=== PATIENT | male | born 1940 | race Hispanic/Latino ===

== ENCOUNTER 2018-12-21 20:43 | Emergency (ER) | payer OTHER ==
[2018-12-21] MEDS ORDERED: DiphenhydrAMINE HCL 50 MG/ML VIAL ONE (20:55)
[2018-12-21] MEDS ORDERED: FAMOTIDINE/PF 20 MG/2 ML VIAL IV ONE (20:55)
[2018-12-21] MEDS ORDERED: METHYLPREDNISOLONE SOD SUCC 125MG/2ML VIAL ONE (20:55)
[2018-12-21 21:21] LABS: BASOPHILS % (AUTO) 0.9 % (0.0-5.0); EOSINOPHILS % (AUTO) 1.9 % (0.0-8.0); HEMATOCRIT 39.7 % (42-54); LYMPHOCYTES % (AUTO) 31.4 % (21.0-51.0); MEAN CORPUSCULAR HEMOGLOBIN 33.8 pg (27.0-33.0); MEAN CORPUSCULAR HGB CONC 33.6 g/dL (32.0-36.0); MEAN CORPUSCULAR VOLUME 100.5 fL (79-99); MONOCYTES % (AUTO) 8.1 % (3.0-13.0); NEUTROPHILS % (AUTO) 57.7 % (40.0-77.0); PLATELET COUNT (AUTO) 348 K/uL (130-400); RED BLOOD CELL COUNT(AUTO) 3.95 MIL/uL (4.50-6.20); RED CELL DISTRIBUTION WIDTH 13.8 % (11.0-15.5); WHITE BLOOD COUNT (AUTO) 6.8 K/uL (4.8-10.8)
[2018-12-21 21:27] LABS: INR 0.93 (0.85-1.15); PARTIAL THROMBOPLASTIN TIME 23.5 SEC (26.3-35.5); PROTHROMBIN TIME 9.8 SEC (9.6-11.6)
[2018-12-21 21:34] LABS: AMYLASE 118 U/L (25-115); LIPASE 377 U/L (114-286)
[2018-12-21 21:37] LABS: ALBUMIN 3.4 g/dL (3.5-5.0); BILIRUBIN,TOTAL 0.2 mg/dL (0.2-1.0); CREATININE 0.5 mg/dL (0.5-1.5); TOTAL PROTEIN, SERUM 6.7 g/dL (6.0-8.3)
[2018-12-21 21:39] LABS: POTASSIUM 2.9 mmol/L (3.5-5.1)
[2018-12-21 21:46] LABS: B-TYPE NATRIURETIC PEPTIDE 24 pg/mL (0-100)
== END 2018-12-22 | disposition home or self-care (01) ==
LOC: EDH 20:43
DX: T63.441A Toxic effect of venom of bees, accidental (unintentional), initial encounter (principal); L50.0 Allergic urticaria; E78.5 Hyperlipidemia, unspecified; Z91.030 Bee allergy status; Y92.89 Other specified places as the place of occurrence of the external cause
CPT/HCPCS: 36415; 71045; 80053; 82150; 82550; 83690; 83880; 85025; 85610; 85730; 93005; 96374; 96375; 99285; A4218; J1200; J2930; J3490

== ENCOUNTER 2020-11-26 09:12 | Inpatient (IN) | payer OTHER ==
[~2020-11-26] VITALS: Ht 175.3 cm; Wt 77.1 kg
[2020-11-26] MEDS ORDERED: ONDANSETRON HCL 4 MG/2 ML VIAL ONE ×2 (09:38→16:35)
[2020-11-26] MEDS ORDERED: SODIUM CHLORIDE 0.9% 1000ML 1,000 ML IV ONE ×2 (09:38→13:32)
[2020-11-26] MEDS ORDERED: MORPHINE SULFATE 4 MG/1ML SYG ONE (09:39)
[2020-11-26 09:42] LABS: APPEARANCE,URINE Turbid (CLEAR); BILIRUBIN,URINE Negative (NEGATIVE); COLOR,URINE Dark Yellow (YELLOW); GLUCOSE, URINE (UA) Negative (NEGATIVE); KETONES,URINE Trace mg/dL (NEGATIVE); LEUKOCYTE ESTERASE ,URINE Small (NEGATIVE); NITRATE,URINE Negative (NEGATIVE); OCCULT BLOOD,URINE Negative (NEGATIVE); PROTEIN,URINE POS 1+ mg/dL (NEGATIVE)
[2020-11-26 09:50] LABS: BASOPHILS % (AUTO) 0.2 % (0.0-5.0); EOSINOPHILS % (AUTO) 0.9 % (0.0-8.0); HEMATOCRIT 43.3 % (42-54); LYMPHOCYTES % (AUTO) 6.3 % (21.0-51.0); MEAN CORPUSCULAR HEMOGLOBIN 29.6 pg (27.0-33.0); MEAN CORPUSCULAR HGB CONC 32.8 g/dL (32.0-36.0); MEAN CORPUSCULAR VOLUME 90.2 fL (79-99); MONOCYTES % (AUTO) 5.4 % (3.0-13.0); NEUTROPHILS % (AUTO) 86.7 % (40.0-77.0); PLATELET COUNT (AUTO) 376 K/uL (130-400); RED CELL DISTRIBUTION WIDTH 13.6 % (11.0-15.5); WHITE BLOOD COUNT (AUTO) 17.3 K/uL (4.8-10.8)
[2020-11-26 09:57] LABS: BACTERIA,URINE Few /HPF (None Seen); RBC,URINE 0-1 /HPF (0-1)
[2020-11-26 09:58] LABS: MUCUS,URINE Few LPF (None Seen); SQUAMOUS EPITHELIAL CELL,UR 0-2 /HPF (0-2)
[2020-11-26 10:08] LABS: BILIRUBIN,TOTAL 0.6 mg/dL (0.2-1.0)
[2020-11-26] MEDS ORDERED: SODIUM POLYSTYRENE SULFONATE 15 GM/60 ML ML ONE (10:23)
[2020-11-26 10:26] LABS: CREATININE 1.4 mg/dL (0.5-1.5); POTASSIUM 4.7 mmol/L (3.5-5.1); TOTAL PROTEIN, SERUM 8.1 g/dL (6.0-8.3)
[2020-11-26] MEDS ORDERED: IOHEXOL-350 75 ML VIAL IV ONE (11:07)
[2020-11-26] MEDS ORDERED: ONDANSETRON HCL 4 MG/2 ML VIAL IVP PRN (13:15)
[2020-11-26] MEDS ORDERED: POTASSIUM CHLORIDE 20MEQ/100ML 100 ML IV PRN ×2 (13:15)
[2020-11-26] MEDS ORDERED: POTASSIUM CHLORIDE 10% ELIXIR 20 MEQ/15 ML UDCUP PO PRN (13:15)
[2020-11-26] MEDS ORDERED: LIDOCAINE HCL-MPF 1% 2ML VIAL IV PRN ×2 (13:15)
[2020-11-26] MEDS ORDERED: MAGNESIUM 2GM PREMIX 50ML 50 ML IV PRN (13:15)
[2020-11-26] MEDS ORDERED: SODIUM CHLORIDE 0.9% 50 ML IV ONE (13:32)
[2020-11-26] MEDS ORDERED: CEFTRIAXONE SODIUM 1 GM ONE (13:32)
[2020-11-26] MEDS: CEFTRIAXONE SODIUM 1 GM IV SCH (14:00)
[2020-11-26] MEDS ORDERED: MORPHINE SULFATE 2 MG/ML 1ML SYG ONE (16:35)
[2020-11-26] MEDS ORDERED: HYDROMORPHONE 1 MG/1 ML AMP ONE (18:30)
[2020-11-26] MEDS: FAMOTIDINE/PF 20 MG/2 ML VIAL IV SCH (21:00)
[2020-11-26] MEDS: SODIUM CHLORIDE 0.9% 1000ML 1,000 ML IV SCH (23:15)
[2020-11-27] VITALS (28 sets, daily range): BP systolic 107–175; BP diastolic 43–84
[2020-11-27] MEDS ORDERED: MORPHINE SULFATE 4 MG/1ML SYG ONE (00:30)
[2020-11-27] MEDS ORDERED: SODIUM CHLORIDE 0.9% 1000ML 1,000 ML IV ONE (02:02)
[2020-11-27] MEDS: MORPHINE SULFATE 2 MG/ML 1ML SYG IVP PRN ×3 (05:47→20:28)
[2020-11-27 05:55] LABS: HEMATOCRIT 42.2 % (42-54); MEAN CORPUSCULAR HEMOGLOBIN 29.3 pg (27.0-33.0); MEAN CORPUSCULAR HGB CONC 32.5 g/dL (32.0-36.0); MEAN CORPUSCULAR VOLUME 90.4 fL (79-99); RED BLOOD CELL COUNT(AUTO) 4.67 MIL/uL (4.50-6.20); RED CELL DISTRIBUTION WIDTH 13.9 % (11.0-15.5)
[2020-11-27 06:08] LABS: CREATININE 1.1 mg/dL (0.5-1.5); POTASSIUM 4.3 mmol/L (3.5-5.1)
[2020-11-27] MEDS: SODIUM CHLORIDE 0.9% 1000ML 1,000 ML IV SCH (10:39)
[2020-11-27] MEDS ORDERED: BUPIVACAINE/PF 0.25% 30ML VIAL IJ ONE ×2 (12:13→12:32)
[2020-11-27] MEDS ORDERED: LIDOCAINE 1%-EPI 1:100,000 20 ML VIAL IJ ONE (12:13)
[2020-11-27] MEDS ORDERED: LIDOCAINE PF 2% 5ML ABBOJECT ONE (12:19)
[2020-11-27] MEDS ORDERED: ROCURONIUM 10MG/1ML SYR 10 MG/ML ML ONE (12:19)
[2020-11-27] MEDS ORDERED: PROPOFOL 10 MG/ML 20ML VIAL IV ONE (12:19)
[2020-11-27] MEDS ORDERED: SUCCINYLCHOLINE 200MG/10ML SYR ONE (12:19)
[2020-11-27] MEDS ORDERED: DEXAMETHASONE SOD PHOSPHATE 10MG/ML 1ML VIAL ONE (12:25)
[2020-11-27] MEDS ORDERED: ONDANSETRON HCL 4 MG/2 ML VIAL ONE (12:26)
[2020-11-27] MEDS ORDERED: GLYCOPYRROLATE 1 MG/5 ML SYRINGE ONE (12:26)
[2020-11-27] MEDS ORDERED: FENTANYL CITRATE PF 50 MCG/1 ML 2ML VIAL ONE (12:49)
[2020-11-27] MEDS ORDERED: CEFAZOLIN SODIUM 1 GM VIAL ONE (13:01)
[2020-11-27] MEDS ORDERED: CEFTRIAXONE SODIUM 1 GM ONE (13:15)
[2020-11-27] MEDS: CEFTRIAXONE SODIUM 1 GM IV SCH (13:50)
[2020-11-27] MEDS ORDERED: MEPERIDINE-PF 25 MG/ML SYG ONE ×2 (14:07→14:31)
[2020-11-27] MEDS: FAMOTIDINE/PF 20 MG/2 ML VIAL IV SCH (20:27)
[2020-11-28] MEDS ORDERED: TAMSULOSIN HCL 0.4 MG CAP.ER.24H ONE (00:15)
[2020-11-28] MEDS: TAMSULOSIN HCL 0.4 MG CAP.ER.24H PO SCH ×3 (00:15→20:48)
[2020-11-28 03:44] VITALS: BP 149/70
[2020-11-28] MEDS ORDERED: SERT-439 PO (04:25)
[2020-11-28] MEDS ORDERED: DOXA4TAB3 PO (04:25)
[2020-11-28] MEDS ORDERED: CHOL100040 PO (04:25)
[2020-11-28 05:07] LABS: HEMATOCRIT 38.6 % (42-54); MEAN CORPUSCULAR HEMOGLOBIN 30.2 pg (27.0-33.0); MEAN CORPUSCULAR HGB CONC 33.2 g/dL (32.0-36.0); RED BLOOD CELL COUNT(AUTO) 4.24 MIL/uL (4.50-6.20); RED CELL DISTRIBUTION WIDTH 13.9 % (11.0-15.5); WHITE BLOOD COUNT (AUTO) 13.7 K/uL (4.8-10.8)
[2020-11-28 05:09] LABS: CREATININE 0.9 mg/dL (0.5-1.5)
[2020-11-28] MEDS: DOXAZOSIN MESYLATE 2 MG TABLET PO SCH (09:00)
[2020-11-28] MEDS: SERTRALINE HCL 50 MG TABLET PO SCH (09:00)
[2020-11-28 09:57] VITALS: BP 155/69
[2020-11-28] MEDS: SODIUM CHLORIDE 0.9% 1000ML 1,000 ML IV SCH ×2 (10:37→21:34)
[2020-11-28 12:12] VITALS: BP 145/67
[2020-11-28 16:52] VITALS: BP 153/72
[2020-11-28] MEDS: CEFTRIAXONE SODIUM 1 GM IV SCH (17:54)
[2020-11-28 19:00] VITALS: BP 153/78
[2020-11-28] MEDS: FAMOTIDINE/PF 20 MG/2 ML VIAL IV SCH (21:34)
[2020-11-28 23:59] VITALS: BP 160/86
[2020-11-29] MEDS: SODIUM CHLORIDE 0.9% 1000ML 1,000 ML IV SCH ×3 (00:35→20:23)
[2020-11-29 03:45] VITALS: BP 149/78
[2020-11-29 05:07] LABS: HEMATOCRIT 35.8 % (42-54); MEAN CORPUSCULAR HEMOGLOBIN 29.6 pg (27.0-33.0); MEAN CORPUSCULAR VOLUME 89.9 fL (79-99); RED BLOOD CELL COUNT(AUTO) 3.98 MIL/uL (4.50-6.20); RED CELL DISTRIBUTION WIDTH 13.6 % (11.0-15.5); WHITE BLOOD COUNT (AUTO) 10.2 K/uL (4.8-10.8)
[2020-11-29 05:21] LABS: CREATININE 0.9 mg/dL (0.5-1.5); POTASSIUM 3.5 mmol/L (3.5-5.1)
[2020-11-29] MEDS: MORPHINE SULFATE 2 MG/ML 1ML SYG IVP PRN (06:07)
[2020-11-29 07:54] VITALS: BP 141/65
[2020-11-29] MEDS: SERTRALINE HCL 50 MG TABLET PO SCH (09:00)
[2020-11-29] MEDS: TAMSULOSIN HCL 0.4 MG CAP.ER.24H PO SCH ×2 (09:00→20:24)
[2020-11-29] MEDS: DOXAZOSIN MESYLATE 2 MG TABLET PO SCH (09:00)
[2020-11-29 11:39] VITALS: BP 144/68
[2020-11-29] MEDS: CEFTRIAXONE SODIUM 1 GM IV SCH (14:42)
[2020-11-29 16:01] VITALS: BP 145/73
[2020-11-29 20:00] VITALS: BP 134/70
[2020-11-29] MEDS: FAMOTIDINE/PF 20 MG/2 ML VIAL IV SCH (20:23)
[2020-11-30 00:01] VITALS: BP 148/88
[2020-11-30 04:00] VITALS: BP 158/84
[2020-11-30 05:24] LABS: HEMATOCRIT 34.1 % (42-54); MEAN CORPUSCULAR HEMOGLOBIN 29.8 pg (27.0-33.0); MEAN CORPUSCULAR HGB CONC 33.1 g/dL (32.0-36.0); RED BLOOD CELL COUNT(AUTO) 3.79 MIL/uL (4.50-6.20); RED CELL DISTRIBUTION WIDTH 13.2 % (11.0-15.5); WHITE BLOOD COUNT (AUTO) 8.6 K/uL (4.8-10.8)
[2020-11-30 05:32] LABS: CREATININE 0.8 mg/dL (0.5-1.5); MAGNESIUM 1.9 mg/dL (1.80-2.40); POTASSIUM 3.3 mmol/L (3.5-5.1)
[2020-11-30] MEDS: SODIUM CHLORIDE 0.9% 1000ML 1,000 ML IV SCH (07:15)
[2020-11-30 07:56] VITALS: BP 147/73
[2020-11-30] MEDS: DOXAZOSIN MESYLATE 2 MG TABLET PO SCH (09:49)
[2020-11-30] MEDS: SERTRALINE HCL 50 MG TABLET PO SCH (09:50)
[2020-11-30] MEDS: TAMSULOSIN HCL 0.4 MG CAP.ER.24H PO SCH (09:50)
[2020-11-30 11:16] VITALS: BP 135/57
[2020-11-30] MEDS: MORPHINE SULFATE 2 MG/ML 1ML SYG IVP PRN (14:14)
[2020-11-30] MEDS: CEFTRIAXONE SODIUM 1 GM IV SCH (14:15)
[2020-11-30 16:26] VITALS: BP 140/72
[2020-11-30 20:00] VITALS: BP 143/73
[2020-11-30] MEDS: FAMOTIDINE/PF 20 MG/2 ML VIAL IV SCH (21:15)
[2020-12-01] VITALS (8 sets, daily range): BP systolic 94–165; BP diastolic 52–78
[2020-12-01] MEDS: TAMSULOSIN HCL 0.4 MG CAP.ER.24H PO SCH ×2 (00:15→09:43)
[2020-12-01 05:36] LABS: HEMATOCRIT 34.2 % (42-54); MEAN CORPUSCULAR HEMOGLOBIN 29.3 pg (27.0-33.0); MEAN CORPUSCULAR HGB CONC 33.6 g/dL (32.0-36.0); MEAN CORPUSCULAR VOLUME 87.2 fL (79-99); RED BLOOD CELL COUNT(AUTO) 3.92 MIL/uL (4.50-6.20); RED CELL DISTRIBUTION WIDTH 13.2 % (11.0-15.5); WHITE BLOOD COUNT (AUTO) 8.3 K/uL (4.8-10.8)
[2020-12-01 05:59] LABS: CREATININE 0.7 mg/dL (0.5-1.5); MAGNESIUM 1.9 mg/dL (1.80-2.40); POTASSIUM 3.1 mmol/L (3.5-5.1)
[2020-12-01] MEDS: POTASSIUM CHLORIDE 20 MEQ ERTAB PO PRN ×3 (07:13→21:15)
[2020-12-01] MEDS: ACETAMINOPHEN-CODEINE 300/30MG TAB PO PRN (09:42)
[2020-12-01] MEDS: DOXAZOSIN MESYLATE 2 MG TABLET PO SCH (09:42)
[2020-12-01] MEDS: SERTRALINE HCL 50 MG TABLET PO SCH (09:43)
[2020-12-01] MEDS: CEFTRIAXONE SODIUM 1 GM IV SCH (18:29)
[2020-12-01] MEDS: FAMOTIDINE/PF 20 MG/2 ML VIAL IV SCH (21:12)
[2020-12-02] MEDS: TAMSULOSIN HCL 0.4 MG CAP.ER.24H PO SCH ×2 (00:15→08:49)
[2020-12-02 03:30] VITALS: BP 139/66
[2020-12-02 05:26] LABS: CREATININE 0.7 mg/dL (0.5-1.5); POTASSIUM 3.7 mmol/L (3.5-5.1)
[2020-12-02 08:00] VITALS: BP 103/51
[2020-12-02] MEDS: DOXAZOSIN MESYLATE 2 MG TABLET PO SCH (08:49)
[2020-12-02] MEDS: SERTRALINE HCL 50 MG TABLET PO SCH (08:49)
[2020-12-02] MEDS: ACETAMINOPHEN-CODEINE 300/30MG TAB PO PRN (10:51)
[2020-12-02 11:58] VITALS: BP 116/55
[2020-12-03] MEDS ORDERED: PANTOPRAZOLE SODIUM 40 MG TABLET.DR PO SCH (09:00)
== END 2020-12-02 14:30 | disposition home or self-care (01) | DRG 330 ==
LOC: EDH 09:12 → EDHIP 13:11 → OBSVTOIN 13:11 → 3AH 23:32
PROVIDERS: ADMIT Internal Medicine; ATTEND Internal Medicine
PROC: 0WQF0ZZ Repair Abdominal Wall, Open Approach (ICD-10-PCS; principal; 2020-11-30)
PROC: 0DB80ZZ Excision of Small Intestine, Open Approach (ICD-10-PCS; 2020-11-30)
DX: K42.0 Umbilical hernia with obstruction, without gangrene (principal); N39.0 Urinary tract infection, site not specified; K40.30 Unilateral inguinal hernia, with obstruction, without gangrene, not specified as recurrent; K55.9 Vascular disorder of intestine, unspecified; K80.20 Calculus of gallbladder without cholecystitis without obstruction; E78.5 Hyperlipidemia, unspecified; N40.0 Benign prostatic hyperplasia without lower urinary tract symptoms; M10.9 Gout, unspecified; E87.6 Hypokalemia
CPT/HCPCS: 36415; 71045; 74177; 80048; 80053; 81001; 82150; 83690; 83735; 84484; 85025; 85027; 87040; 87088; 93005; 97039; G0378; J0330; J0690; J0696; J1100; J1170; J2001; J2175; J2270; J2405; J2704; J3010; J3490; J7030; J7120; Q9967

== ENCOUNTER 2021-01-27 12:09 | Emergency (ER) | payer OTHER ==
[~2021-01-27] VITALS: Ht 177.8 cm; Wt 74.8 kg
[~2021-01-27 12:09] MED LIST: CHOL100040 PO; DOXA4TAB3 PO; SERT-439 PO
[2021-01-27 12:11] VITALS: BP 100/62
[2021-01-27 13:24] LABS: BASOPHILS % (AUTO) 0.5 % (0.0-5.0); EOSINOPHILS % (AUTO) 1.2 % (0.0-8.0); HEMATOCRIT 37.9 % (42-54); LYMPHOCYTES % (AUTO) 17.4 % (21.0-51.0); MEAN CORPUSCULAR HEMOGLOBIN 30.6 pg (27.0-33.0); MEAN CORPUSCULAR VOLUME 92.7 fL (79-99); MONOCYTES % (AUTO) 7.7 % (3.0-13.0); NEUTROPHILS % (AUTO) 72.9 % (40.0-77.0); PLATELET COUNT (AUTO) 331 K/uL (130-400); RED BLOOD CELL COUNT(AUTO) 4.09 MIL/uL (4.50-6.20); RED CELL DISTRIBUTION WIDTH 14.3 % (11.0-15.5); WHITE BLOOD COUNT (AUTO) 7.5 K/uL (4.8-10.8)
[2021-01-27 14:02] LABS: B-TYPE NATRIURETIC PEPTIDE 284 pg/mL (0-100)
[2021-01-27 14:04] LABS: CARBON DIOXIDE 30 mmol/L (21-32); CHLORIDE 104 mmol/L (101-111); GLOMERULAR FILTR. RATE CALC 76 mL/min (>60); GLUCOSE,RANDOM 103 mg/dL (70-105); POTASSIUM 4.5 mmol/L (3.5-5.1); SODIUM SERUM 143 mmol/L (136-145); UREA NITROGEN, BLOOD 18 mg/dL (7-18)
[2021-01-27 14:15] LABS: ALANINE AMINOTRANSFERASE 31 U/L (12-78); ALBUMIN 3.3 g/dL (3.5-5.0); ASPARTATE AMINOTRANSFERASE 19 U/L (10-37); BILIRUBIN,TOTAL 0.8 mg/dL (0.2-1.0); CREATINE KINASE, TOTAL 40 U/L (21-232); MYOGLOBIN 62 ng/mL (10-92); TOTAL PROTEIN, SERUM 7.2 g/dL (6.0-8.3); TROPONIN I < 0.04 ng/mL (0.00-0.06)
[2021-01-27 15:13] LABS: CRP QUANTITATIVE 158.2 mg/L (0.00-9.0)
[2021-01-27 15:16] LABS: APPEARANCE,URINE Clear (CLEAR); BILIRUBIN,URINE Negative (NEGATIVE); COLOR,URINE Dark Yellow (YELLOW); GLUCOSE, URINE (UA) Negative (NEGATIVE); KETONES,URINE Trace mg/dL (NEGATIVE); LEUKOCYTE ESTERASE ,URINE Small (NEGATIVE); NITRATE,URINE Negative (NEGATIVE); OCCULT BLOOD,URINE Negative (NEGATIVE); PH,URINE 5.5 (5.0-8.0); PROTEIN,URINE Negative (NEGATIVE)
[2021-01-27 15:35] LABS: RBC,URINE 0-1 /HPF (0-1)
[2021-01-27 15:36] LABS: BACTERIA,URINE Few /HPF (None Seen); MUCUS,URINE Few LPF (None Seen); SQUAMOUS EPITHELIAL CELL,UR Rare /HPF (0-2)
[2021-01-27] MEDS ORDERED: CEFTRIAXONE 1G VIAL IVP SCH (16:00)
[2021-01-27] MEDS ORDERED: CEFTRIAXONE 1G VIAL ONE (16:16)
[2021-01-27] MEDS ORDERED: CEPH500B PO (16:52)
[2021-01-27] MEDS ORDERED: PHEN-847 PO (16:52)
[2021-01-27 17:15] VITALS: BP 108/70
== END 2021-01-27 17:16 | disposition home or self-care (01) ==
LOC: EDH 12:29
DX: N39.0 Urinary tract infection, site not specified (principal); Z98.890 Other specified postprocedural states
CPT/HCPCS: 36415; 71045; 74176; 80053; 81001; 82550; 83690; 83874; 83880; 84484; 85025; 86140; 93005 ×2; 96374; 99285; J0696

== ENCOUNTER 2022-12-30 14:46 | Observation (INO) | payer OTHER ==
[~2022-12-30] VITALS: Ht 177.8 cm; Wt 82.0 kg
[~2022-12-30 14:46] MED LIST changes: +CEPH500B PO; +PHEN-847 PO
[2022-12-30 15:23] LABS: APPEARANCE,URINE CLEAR (CLEAR); BILIRUBIN,URINE NEGATIVE (NEGATIVE); COLOR,URINE YELLOW (YELLOW); GLUCOSE, URINE (UA) NEGATIVE (NEGATIVE); KETONES,URINE NEGATIVE (NEGATIVE); LEUKOCYTE ESTERASE ,URINE NEGATIVE Leu/uL (NEGATIVE); NITRATE,URINE NEGATIVE (NEGATIVE); OCCULT BLOOD,URINE NEGATIVE (NEGATIVE); PROTEIN,URINE 10 mg/dL (NEGATIVE); UROBILINOGEN,URINE 0.2 mg/dL (0.2-1.0)
[2022-12-30 15:37] LABS: BACTERIA,URINE RARE /HPF (None Seen); MUCUS,URINE FEW LPF (None Seen); WBC,URINE 0-1 /HPF (0-1)
[2022-12-30 16:50] LABS: BASOPHILS % (AUTO) 0.2 % (0.0-5.0); HEMATOCRIT 45.5 % (42-54); LYMPHOCYTES % (AUTO) 4.4 % (21.0-51.0); MEAN CORPUSCULAR HEMOGLOBIN 30.8 pg (27.0-33.0); MEAN CORPUSCULAR HGB CONC 34.1 g/dL (32.0-36.0); MEAN CORPUSCULAR VOLUME 90.5 fL (79-99); MONOCYTES % (AUTO) 2.2 % (3.0-13.0); NEUTROPHILS % (AUTO) 92.8 % (40.0-77.0); PLATELET COUNT (AUTO) 293 K/uL (130-400); RED BLOOD CELL COUNT(AUTO) 5.03 MIL/uL (4.50-6.20); RED CELL DISTRIBUTION WIDTH 13.2 % (11.0-15.5); WHITE BLOOD COUNT (AUTO) 14.6 K/uL (4.8-10.8)
[2022-12-30 17:01] LABS: POTASSIUM 4.3 mmol/L (3.5-5.1)
[2022-12-30 17:06] LABS: ALBUMIN 4.8 g/dL (3.5-5.0); TOTAL PROTEIN, SERUM 9.1 g/dL (6.0-8.3)
[2022-12-30] MEDS ORDERED: AZITHROMYCIN 500MG+NS 250ML 250 ML ONE (17:15)
[2022-12-30] MEDS ORDERED: AZITHROMYCIN 500MG+NS 250ML IVPB SCH (17:30)
[2022-12-30] MEDS ORDERED: CEFTRIAXONE 1G VIAL IVPB ONE (17:30)
[2022-12-30] MEDS ORDERED: ONDANSETRON 4MG INJ IVP ONE (17:30)
[2022-12-30] MEDS ORDERED: IPRATROPIUM/ALBUTEROL SULFATE 3 ML SOLUTION IH ONE (17:30)
[2022-12-30] MEDS ORDERED: BUDESONIDE 0.5 MG/2 ML INH IH SCH (18:00)
[2022-12-30] MEDS ORDERED: HYDRALAZINE 20MG/ML VIAL IV PRN (18:30)
[2022-12-30] MEDS ORDERED: HYDROCODONE/ACETAMINOPHEN 5/325 MG TAB PO PRN ×2 (18:30)
[2022-12-30] MEDS: IPRATROPIUM/ALBUTEROL SULFATE 3 ML SOLUTION IH SCH ×2 (18:30→23:03)
[2022-12-30 18:52] LABS: HEMOGLOBIN A1C 5.4 % (4.0-6.0)
[2022-12-30] MEDS: PANTOPRAZOLE 40 MG/VIAL IVP SCH (20:18)
[2022-12-30] MEDS: LACTATED RINGERS 1000ML 1,000 ML IV SCH (20:52)
[2022-12-30] MEDS ORDERED: FAMOTIDINE 20MG TAB PO SCH (21:00)
[2022-12-31] MEDS: IPRATROPIUM/ALBUTEROL SULFATE 3 ML SOLUTION IH SCH ×4 (06:31→23:27)
[2022-12-31 07:10] LABS: BASOPHILS % (AUTO) 0.3 % (0.0-5.0); EOSINOPHILS % (AUTO) 0.1 % (0.0-8.0); HEMATOCRIT 42.1 % (42-54); LYMPHOCYTES % (AUTO) 12.3 % (21.0-51.0); MEAN CORPUSCULAR HEMOGLOBIN 30.8 pg (27.0-33.0); MEAN CORPUSCULAR VOLUME 90.5 fL (79-99); MONOCYTES % (AUTO) 8.4 % (3.0-13.0); NEUTROPHILS % (AUTO) 78.3 % (40.0-77.0); PLATELET COUNT (AUTO) 298 K/uL (130-400); RED BLOOD CELL COUNT(AUTO) 4.65 MIL/uL (4.50-6.20); RED CELL DISTRIBUTION WIDTH 13.3 % (11.0-15.5); WHITE BLOOD COUNT (AUTO) 15.6 K/uL (4.8-10.8)
[2022-12-31 07:30] LABS: CREATININE 1.1 mg/dL (0.5-1.5); MAGNESIUM 1.9 mg/dL (1.80-2.40); PHOSPHORUS 2.8 mg/dL (2.5-4.9); POTASSIUM 4.9 mmol/L (3.5-5.1)
[2022-12-31] MEDS: ACETAMINOPHEN 325 MG TAB PO PRN (07:55)
[2022-12-31] MEDS: LACTATED RINGERS 1000ML 1,000 ML IV SCH ×2 (07:55→22:10)
[2022-12-31] MEDS: POLYETHYLENE GLYCOL 3350 17 GM POWD.PACK PO SCH (09:00)
[2022-12-31] MEDS ORDERED: CEFTRIAXONE 1G VIAL IV SCH (09:00)
[2022-12-31] MEDS: PANTOPRAZOLE 40 MG/VIAL IVP SCH (09:10)
[2022-12-31] MEDS: AZITHROMYCIN 500MG+NS 250ML IV SCH (09:11)
[2022-12-31] MEDS: ENOXAPARIN SODIUM 30 MG/0.3 ML SQ SCH (09:11)
[2022-12-31] MEDS: ASCORBIC ACID 500 MG TAB PO SCH (09:11)
[2022-12-31] MEDS ORDERED: ZOSYN 3.375GM +NS 50ML IVPB SCH (10:30)
[2022-12-31] MEDS ORDERED: 0.9%NACL 50ML IV SCH (11:00)
[2022-12-31 17:55] VITALS: BP 149/75
[2022-12-31] MEDS: ZOSYN 3.375GM +NS 50ML IVPB SCH (19:24)
[2022-12-31 20:56] VITALS: BP 125/70
[2023-01-01 00:06] VITALS: BP 137/69
[2023-01-01 04:14] LABS: BASOPHILS % (AUTO) 0.3 % (0.0-5.0); EOSINOPHILS % (AUTO) 0.2 % (0.0-8.0); HEMATOCRIT 34.9 % (42-54); LYMPHOCYTES % (AUTO) 11.3 % (21.0-51.0); MEAN CORPUSCULAR HEMOGLOBIN 30.5 pg (27.0-33.0); MEAN CORPUSCULAR VOLUME 92.6 fL (79-99); MONOCYTES % (AUTO) 9.6 % (3.0-13.0); NEUTROPHILS % (AUTO) 78.1 % (40.0-77.0); PLATELET COUNT (AUTO) 240 K/uL (130-400); RED BLOOD CELL COUNT(AUTO) 3.77 MIL/uL (4.50-6.20); RED CELL DISTRIBUTION WIDTH 13.7 % (11.0-15.5); WHITE BLOOD COUNT (AUTO) 10.6 K/uL (4.8-10.8)
[2023-01-01 04:23] VITALS: BP 116/66
[2023-01-01] MEDS: ZOSYN 3.375GM +NS 50ML IVPB SCH ×3 (04:30→19:37)
[2023-01-01 04:46] LABS: CREATININE 1.2 mg/dL (0.5-1.5); POTASSIUM 3.7 mmol/L (3.5-5.1)
[2023-01-01] MEDS: IPRATROPIUM/ALBUTEROL SULFATE 3 ML SOLUTION IH SCH ×4 (06:16→23:36)
[2023-01-01 07:30] VITALS: BP 123/65
[2023-01-01] MEDS: PANTOPRAZOLE 40 MG/VIAL IVP SCH (09:21)
[2023-01-01] MEDS: AZITHROMYCIN 500MG+NS 250ML IV SCH (09:21)
[2023-01-01] MEDS: POLYETHYLENE GLYCOL 3350 17 GM POWD.PACK PO SCH (09:21)
[2023-01-01] MEDS: ASCORBIC ACID 500 MG TAB PO SCH (09:22)
[2023-01-01] MEDS: ENOXAPARIN SODIUM 30 MG/0.3 ML SQ SCH (09:22)
[2023-01-01 11:30] VITALS: BP 121/68
[2023-01-01] MEDS: LACTATED RINGERS 1000ML 1,000 ML IV SCH (11:53)
[2023-01-01 15:30] VITALS: BP 124/63
[2023-01-01 20:00] VITALS: BP 126/55
[2023-01-01] MEDS: ACETAMINOPHEN 325 MG TAB PO PRN (23:39)
[2023-01-02] VITALS: BP 136/61
[2023-01-02] MEDS: LACTATED RINGERS 1000ML 1,000 ML IV SCH (01:23)
[2023-01-02 03:56] LABS: BASOPHILS % (AUTO) 0.6 % (0.0-5.0); EOSINOPHILS % (AUTO) 1.3 % (0.0-8.0); HEMATOCRIT 36.2 % (42-54); LYMPHOCYTES % (AUTO) 14.3 % (21.0-51.0); MEAN CORPUSCULAR HEMOGLOBIN 30.3 pg (27.0-33.0); MEAN CORPUSCULAR HGB CONC 32.3 g/dL (32.0-36.0); MEAN CORPUSCULAR VOLUME 93.8 fL (79-99); MONOCYTES % (AUTO) 9.8 % (3.0-13.0); NEUTROPHILS % (AUTO) 73.6 % (40.0-77.0); PLATELET COUNT (AUTO) 232 K/uL (130-400); RED BLOOD CELL COUNT(AUTO) 3.86 MIL/uL (4.50-6.20); RED CELL DISTRIBUTION WIDTH 13.7 % (11.0-15.5); WHITE BLOOD COUNT (AUTO) 8.9 K/uL (4.8-10.8)
[2023-01-02 04:00] VITALS: BP 128/64
[2023-01-02 04:04] LABS: CREATININE 1.1 mg/dL (0.5-1.5); POTASSIUM 3.8 mmol/L (3.5-5.1)
[2023-01-02] MEDS: ZOSYN 3.375GM +NS 50ML IVPB SCH (04:20)
[2023-01-02] MEDS: IPRATROPIUM/ALBUTEROL SULFATE 3 ML SOLUTION IH SCH ×2 (06:20→11:00)
[2023-01-02 08:00] VITALS: BP 146/72
[2023-01-02] MEDS: ENOXAPARIN SODIUM 30 MG/0.3 ML SQ SCH (09:22)
[2023-01-02] MEDS: PANTOPRAZOLE 40 MG/VIAL IVP SCH (09:22)
[2023-01-02] MEDS: AZITHROMYCIN 500MG+NS 250ML IV SCH (09:22)
[2023-01-02] MEDS: ASCORBIC ACID 500 MG TAB PO SCH (09:22)
[2023-01-02] MEDS: POLYETHYLENE GLYCOL 3350 17 GM POWD.PACK PO SCH (09:23)
[2023-01-02] MEDS ORDERED: AMOX-426 PO (09:56)
[2023-01-02] MEDS ORDERED: ALBUHFA IH (09:56)
[2023-01-02 11:40] VITALS: BP 146/72
== END 2023-01-02 14:00 | disposition home or self-care (01) ==
LOC: EDH 14:46 → EDHIP 18:07 → UNDOADMOB 18:17 → EDHIP 18:17 → 4BH 12-31 17:55
PROVIDERS: ADMIT Internal Medicine Critical Care Medicine; ATTEND Internal Medicine Critical Care Medicine
DX: K52.9 Noninfective gastroenteritis and colitis, unspecified (principal); Z20.822 Contact with and (suspected) exposure to COVID-19; J69.0 Pneumonitis due to inhalation of food and vomit; D72.829 Elevated white blood cell count, unspecified; Z86.19 Personal history of other infectious and parasitic diseases; Z79.899 Other long term (current) drug therapy
CPT/HCPCS: 96376 ×4; 96361 ×4; 96365; 96375; 99285; 83036; 84484; 80053; 83690; 85025 ×4; 87040 ×2; 87804 ×2; 83605; 81001; 36415 ×4; 87635; 71045 ×2; 74176; 93005; 94640 ×12; 94664; 84145; 96372 ×3; 96366 ×3; 96368; 83735; 84100; 80048 ×3; 97161; 97039; 97116; 74018; G0378 ×68; C9803; J7120; J0696 ×2; J2405; J0456 ×4; C9113 ×4; J1650 ×3; J2543 ×5; A4600; G8980; G8983

== ENCOUNTER 2023-11-11 06:10 | Day surgery (SDC) | payer OTHER ==
[2023-11-09 11:33] LABS: BASOPHILS # (AUTO) 0.05 K/uL (0.00-0.20); BASOPHILS % (AUTO) 0.4 % (0.0-5.0); EOSINOPHILS # (AUTO) 0.06 K/uL (0.00-0.70); EOSINOPHILS % (AUTO) 0.4 % (0.0-8.0); HEMATOCRIT 39.3 % (42-54); IMMATURE GRANULOCYTE ABSOLUTE 0.06 K/uL (0-1); LYMPHOCYTES # (AUTO) 1.7 K/uL (1.0-4.8); LYMPHOCYTES % (AUTO) 12.7 % (21.0-51.0); MEAN CORPUSCULAR HEMOGLOBIN 28.2 pg (27.0-33.0); MEAN CORPUSCULAR HGB CONC 32.3 g/dL (32.0-36.0); MEAN CORPUSCULAR VOLUME 87.3 fL (79-99); MONOCYTES # (AUTO) 0.9 K/uL (0.1-1.0); NEUTROPHILS # (AUTO) 10.6 K/uL (1.8-7.7); NEUTROPHILS % (AUTO) 79.1 % (40.0-77.0); PLATELET COUNT (AUTO) 398 K/uL (130-400); RED CELL DISTRIBUTION WIDTH 15.5 % (11.0-15.5); WHITE BLOOD COUNT (AUTO) 13.4 K/uL (4.8-10.8)
[2023-11-09 11:34] LABS: APPEARANCE,URINE CLEAR (CLEAR); BILIRUBIN,URINE NEGATIVE (NEGATIVE); COLOR,URINE YELLOW (YELLOW); GLUCOSE, URINE (UA) NEGATIVE (NEGATIVE); KETONES,URINE NEGATIVE (NEGATIVE); LEUKOCYTE ESTERASE ,URINE NEGATIVE Leu/uL (NEGATIVE); NITRATE,URINE NEGATIVE (NEGATIVE); OCCULT BLOOD,URINE NEGATIVE (NEGATIVE); PH,URINE 6.5 (5.0-8.0); PROTEIN,URINE 10 mg/dL (NEGATIVE); UROBILINOGEN,URINE 0.2 mg/dL (0.2-1.0)
[2023-11-09 11:36] LABS: ADD UA MICROSCOPIC YES
[2023-11-09 11:38] LABS: BACTERIA,URINE RARE /HPF (None Seen); MUCUS,URINE RARE LPF (None Seen)
[2023-11-09 11:40] LABS: CREATININE 1.6 mg/dL (0.5-1.3); POTASSIUM 4.7 mmol/L (3.5-5.1)
[2023-11-09 11:44] LABS: INR 0.95 (0.85-1.15); PROTHROMBIN TIME 11.2 SEC (9.6-11.6)
[2023-11-09 11:45] LABS: PARTIAL THROMBOPLASTIN TIME 35.9 SEC (26.3-35.5)
[2023-11-09 12:21] LABS: B-TYPE NATRIURETIC PEPTIDE 98 pg/mL (0-100)
[2023-11-09 12:45] VITALS: BP 129/65; PULSE 82; RESP 16
[~2023-11-11] VITALS: Ht 175.3 cm; Wt 74.7 kg
[2023-11-11] VITALS (10 sets, daily range): BP systolic 109–142; BP diastolic 47–71; PULSE 58–82; RESP 14–16
[~2023-11-11 06:10] MED LIST changes: +ACET-66 PO; +ATOR20TA65 PO; +CALC500T13 PO; +CARB30DR OP; -CEPH500B PO; +CHOL-34 PO; -CHOL100040 PO; -DOXA4TAB3 PO; -PHEN-847 PO; +TAMS-1 PO; +VITAMIN C PO
[2023-11-11] MEDS ORDERED: SULF1TAB42 PO (06:48)
[2023-11-11] MEDS: 0.9%NACL 1000ML 1,000 ML IV ONE (06:51)
[2023-11-11] MEDS ORDERED: IOHEXOL 350 MG/ML 100ML INFUS..BTL IV ONE (07:27)
[2023-11-11] MEDS ORDERED: IOHEXOL-350 75 ML VIAL IV ONE (07:27)
[2023-11-11] MEDS ORDERED: FENTANYL CITRATE PF 50 MCG/1 ML 2ML VIAL ONE (07:27)
[2023-11-11] MEDS ORDERED: SODIUM BICARB 50MEQ 50ML VIAL 50 ML ONE (07:27)
[2023-11-11] MEDS ORDERED: LIDOCAINE HCL 400MG/20ML VIAL ONE (07:27)
[2023-11-11] MEDS ORDERED: MIDAZOLAM HCL 1 MG/ML 2ML VIAL ONE (07:27)
[2023-11-11] MEDS ORDERED: HEPARIN 10,000 UNIT/10ML (1,000 UNIT/ML) VIAL ONE (07:28)
[2023-11-11] MEDS ORDERED: NITROGLYCERIN 50MG VIAL ONE (07:28)
[2023-11-11] MEDS ORDERED: NICARDIPINE 25MG INJ IV ONE (07:34)
[2023-11-11] MEDS ORDERED: IOHEXOL-350 50ML VIAL IV ONE (07:43)
[2023-11-11] MEDS ORDERED: 0.9% NACL 500ML IV.SOLN 500 ML IV SCH (08:30)
== END 2023-11-11 11:31 | disposition home or self-care (01) ==
LOC: DAH 06:10
PROVIDERS: ATTEND Internal Medicine Cardiovascular Disease
DX: I21.4 Non-ST elevation (NSTEMI) myocardial infarction (principal); I25.10 Atherosclerotic heart disease of native coronary artery without angina pectoris; I49.1 Atrial premature depolarization; E78.2 Mixed hyperlipidemia; Z79.899 Other long term (current) drug therapy; Z98.890 Other specified postprocedural states; Z90.49 Acquired absence of other specified parts of digestive tract; Z79.01 Long term (current) use of anticoagulants
CPT/HCPCS: 80048; 83880; 85025; 85610; 85730; 81001; 36415; 71045; 93005; 93458; C1769; C1894; A4649; J3010; J3490 ×4; J7030; J1644 ×2; J2250; Q9967 ×2; A4215; A4222; A4221; A4663; A4216; A4606; Q9965; A4223 ×3; 96360; 96361; 99156; 99157

== ENCOUNTER → 2024-03-21 | Outpatient (CLI) | payer OTHER ==
[~2024-03-21] MED LIST changes: +SULF1TAB42 PO
== END | disposition home or self-care (01) ==
LOC: RAH 11:11
PROVIDERS: ATTEND Family Medicine
DX: R51.9 Headache, unspecified (principal)
CPT/HCPCS: 70450

== ENCOUNTER 2024-10-01 16:01 | Observation (INO) | payer OTHER ==
[~2024-10-01] VITALS: Ht 177.8 cm; Wt 82.0 kg
[~2024-10-01 16:01] MED LIST changes: -TAMS-1 PO; +TAMS-55 PO
--- NOTE | 2024-10-01 16:10 | ERN ---
ED Note History of Present Illness Stated Complaint: ABD PAIN Chief Complaint: Abdominal Pain Time Seen by MD: 16:05 Dictation: PATIENT IS AN 84-YEAR-OLD MALE COMING IN TODAY WITH COMPLAINTS OF HAVING NAUSEA VOMITING AND UNABLE TO SWALLOW ANYTHING BECAUSE IT COMES RIGHT BACK UP STARTING YESTERDAY AFTER HE ATE SOME PORK MEAT. HE DENIES HAVING A CHOKING EPISODE YESTERDAY. HE IS HOWEVER SINCE HE ATE THE MEAT, ANYTHING HE TRIES TO EAT COMES RIGHT BACK UP. INCLUDING FLUIDS. Allergies: Coded Allergies: No Known Drug Allergies (Unverified Allergy, 01/11/13) Home Meds Reported Medications Sulfamethoxazole/Trimethoprim (Bactrim Ds Tablet) 800 Mg-160 Mg Tablet, 1 TAB PO BID, TAB 11/11/23 Carboxymethylcellulose Sodium (Refresh Plus) 0.5 % Droperette, 2 EACH OP AD PRN for DRYNESS, DROP 11/09/23 Calcium Carbonate (Tums 500 mg Chew Tab) 200 Mg Calcium (500 Mg) Tab.chew, 4 TAB PO AD PRN for HEARTBURN, TAB.CHEW 11/09/23 Cholecalciferol (Vitamin D3) (Vitamin D3) 25 Mcg (1000 Unit) Tablet, 25 MCG PO DAILY, TAB 11/09/23 [Vitamin C] No Conflict Check, 500 MG PO WEEKLY 11/09/23 Sertraline HCl (Sertraline HCl) 50 Mg Tablet, 1 TAB PO DAILY 08/02/23 Acetaminophen (Tylenol) 500 Mg Tab, 1000 MG PO AD PRN for PAIN, TAB 07/29/23 Atorvastatin Calcium (Atorvastatin Calcium) 20 Mg Tablet, 20 MG PO HS, TAB 07/29/23 Tamsulosin HCl (Flomax) 0.4 Mg Cap.er.24h, 0.8 MG PO HS, CAPSULE.DR 07/29/23 Past Medical History Past Medical History: Depression, High Cholesterol Additional Past Medical Hx: SHINGLES, HARD OF HEARING Surgical History: Other Surgical History Other: HIATAL HERNIA REPAIR, ABD HERNIA Family History: Negative Social History: Negative RN Note Reviewed/Agreed w/PFSH: Yes Review of System Dictation CONSTITUTIONAL: NEGATIVE EXCEPT FOR HPI HEAD/FACE: NEGATIVE EXCEPT FOR HPI EENT: NEGATIVE EXCEPT FOR HPI RESPIRATORY: NEGATIVE EXCEPT FOR HPI GASTROINTESTINAL/ABDOMINAL: NEGATIVE EXCEPT FOR HPI NAUSEA VOMITING UNABLE TO PASS FOOD OR FLUIDS GENITOURINARY: NEGATIVE EXCEPT FOR HPI MUSCULOSKELETAL: NEGATIVE EXCEPT FOR HPI INTEGUMENTARY: NEGATIVE EXCEPT FOR HPI NEUROLOGICAL/PSYCH: NEGATIVE EXCEPT FOR HPI HEMATOLOGIC/LYMPHATIC: NEGATIVE EXCEPT FOR HPI ALL SYSTEMS NEGATIVE, EXCEPT NOTED ABOVE. 13 POINT REVIEW OF SYSTEMS ASSESSED AND ALL NEGATIVE EXCEPT FOR ABOVE. Initial Vital Sign VS Vital Signs Date Time Temp Pulse Resp B/P (MAP) Pulse Ox O2 Delivery O2 Flow Rate FiO2 10/01/24 16:03 97.9 70 18 115/76 98 Room Air 0 10/01/24 16:40 21 Physical Exam Dictation VITAL SIGNS REVIEWED GENERAL APPEARANCE: ALERT, ORIENTED X 3, NO ACUTE DISTRESS, WELL DEVELOPED, NOURISHED. HEAD AND FACE: NON-TRAUMATIC. EYES: PERRL, PINK CONJUNCTIVAS, EYELID NO TRAUMA, ANTERIOR CHAMBER WITH ARCUS SENILIS. EARS: PINNAS INTACT AND NO SIGNS OF TRAUMA OR ERYTHEMA EAR CANALS CLEAR AND NO DISCHARGE TM NO ERYTHEMA NOSE: NO DISCHARGE, NO BLEEDING. OROPHARYNX: MOUTH NORMAL, TONGUE PINK, PHARYNX CLEAR,NO ERYTHEMA, TONSILS NO EXUDATES, NO ABSCESSES NOTED, MUCOUS MEMBRANE MOIST NECK: SUPPLE, NON-TENDER, NO THYROMEGALY, NO MASSES, NO JVD, NO BRUITS BREAST:DEFERRED CHEST:NO TENDERNESS, NO CREPITUS, NO PARADOXICAL MOVEMENT, NO RETRACTIONS LUNGS:CLEAR, WELL-VENTILATED, SYMMETRIC, NO RALES, NO WHEEZING, NO RHONCHI, NO STRIDOR, GOOD BREATH SOUNDS BILATERALLY HEART: REGULAR RATE, REGULAR RHYTHM, NO MURMUR, NO GALLOPS VASCULAR: NO PERIPHERAL EDEMA, ABDOMEN: SOFT, POSITIVE BOWEL SOUNDS, NONDISTENDED, NO GUARDING, NONTENDER, NO REBOUND, NO MASSES NO HEPATOMEGALY, NO SPLENOMEGALY, NO BLAND'S SIGN, NO HERNIAS. RECTAL: DEFERRED GENITAL: DEFERRED NEUROLOGICAL: NORMAL SPEECH, MOTOR FUNCTION INTACT, SENSORY FUNCTION INTACT MUSCULOSKELETAL: NECK NONTENDER, FULL RANGE OF MOTION, BACK NONTENDER, FULL RANGE OF MOTION, EXTREMITIES: NONTENDER, FULL RANGE OF MOTION SKIN: COLOR PINK, DRY, NO TURGOR, NO RASH, NO LACERATIONS, NO ABRASIONS, NO CONTUSIONS. LYMPHATIC: DEFERRED Results (Laboratory/Radiology) Laboratory/Radiology Laboratory Tests Test 10/01/24 16:30 White Blood Count 9.1 K/uL (4.8-10.8) Red Blood Count 4.51 MIL/uL (4.50-6.20) Hemoglobin 13.8 g/dL (14.0-18.0) L Hematocrit 41.1 % (42-54) L Mean Corpuscular Volume 91.1 fL (79-99) Mean Corpuscular Hemoglobin 30.6 pg (27.0-33.0) Mean Corpuscular Hemoglobin Concent 33.6 g/dL (32.0-36.0) Red Cell Distribution Width 13.1 % (11.0-15.5) Platelet Count 315 K/uL (130-400) Mean Platelet Volume 9.8 fL (7.5-10.5) Immature Granulocyte % (Auto) 0.5 % (0-1) Neutrophils (%) (Auto) 74.6 % (40.0-77.0) Lymphocytes (%) (Auto) 17.6 % (21.0-51.0) L Monocytes (%) (Auto) 5.8 % (3.0-13.0) Eosinophils (%) (Auto) 0.8 % (0.0-8.0) Basophils (%) (Auto) 0.7 % (0.0-5.0) Neutrophils # (Auto) 6.8 K/uL (1.8-7.7) Lymphocytes # (Auto) 1.6 K/uL (1.0-4.8) Monocytes # (Auto) 0.5 K/uL (0.1-1.0) Eosinophils # (Auto) 0.07 K/uL (0.00-0.70) Basophils # (Auto) 0.06 K/uL (0.00-0.20) Absolute Immature Granulocyte (auto 0.05 K/uL (0-1) Nucleated Red Blood Cells 0.0 % (0.0-0.19) Sodium Level 144 mmol/L (136-145) Potassium Level 4.0 mmol/L (3.5-5.1) Chloride Level 106 mmol/L (101-111) Carbon Dioxide Level 28 mmol/L (21-32) Blood Urea Nitrogen 19 mg/dL (7-18) H Creatinine 1.3 mg/dL (0.5-1.3) Glomerular Filtration Rate Calc 54 mL/min (>90) Random Glucose 102 mg/dL (70-105) Total Calcium 9.0 mg/dL (8.5-10.1) Troponin I High Sensitivity 12 ng/L (4-75) Lipase 36 U/L (16-77) Labs Reviewed?: Yes EKG Comment: [facility] Test Date: 2024-10-01 Test Time: 16:24:32 Pat Name: ADITHYA MINAYA Department: [facility] Room: Gender: Male Manager Financial Systems: [id number] : 1940 Requested By: JED BRIAN Order Number: [id number] Reading MD: Measurements Intervals [place] Rate: 72 P: 11 NE: 157 QRS: -11 QRSD: 85 T: 0 QT: 395 QTc: 432 Interpretive Statements Sinus rhythm No previous ECG available for comparison Please click the below link to view image of tracing. ED Course ED Course Orders Procedure Category Date Status Time Cbc With Differential LAB 10/01/24 Complete 16:08 Troponin I High LAB 10/01/24 Complete Sensitivity 16:08 12 Lead Ekg Tracing- EKG 10/01/24 Complete Technical 16:08 0.9%Nacl 1000ml (Ns PHA 10/01/24 Complete 1000ml) 16:30 Ondansetron 4mg Inj PHA 10/01/24 Complete (Zofran 4mg Inj) 16:30 Famotidine 20mg Vial PHA 10/01/24 Complete (Pepcid 20mg Vial) 16:30 Lipase LAB 10/01/24 Complete 16:08 Basic Metabolic Panel LAB 10/01/24 Complete 16:08 *Nursing CPOE 10/01/24 Transmitted Communication: 17:09 Glucagon 1mg Kit PHA 10/01/24 In Process (Glucagon 1mg Kit) 18:00 Ct Abdomen/Pelvis CT 10/01/24 Logged W/Contrast 19:29 Gastroenterology CONPHYSVC 10/01/24 Transmitted Consult 19:35 Iohexol (Omnipaque) PHA 10/01/24 Complete 19:39 Current Medications Medications (Trade) Dose Ordered Sig/Shira Route PRN Reason Start Time Stop Time Status Last Admin Dose Admin Famotidine (Pepcid 20mg Vial) 20 mg ONCE ONCE IV 10/01/24 16:30 10/01/24 16:31 DC 10/01/24 17:08 Glucagon (Glucagon 1mg Kit) 1 mg ONCE IV 10/01/24 18:00 10/31/24 17:59 10/01/24 19:04 Iohexol (Omnipaque) 75 ml STK-MED ONCE IV 10/01/24 19:39 10/01/24 19:39 DC Ondansetron HCl (zoFRAN 4MG INJ) 4 mg ONCE ONCE IVP 10/01/24 16:30 10/01/24 16:31 DC 10/01/24 17:08 Sodium Chloride 1,000 ml @ 0 mls/hr ONCE ONCE IV 10/01/24 16:30 10/01/24 16:31 DC 10/01/24 17:08 Vital Signs Date Time Temp Pulse Resp B/P (MAP) Pulse Ox O2 Delivery O2 Flow Rate FiO2 10/01/24 19:28 97.9 74 20 124/71 98 Room Air* 0 10/01/24 18:35 98.1 60 18 121/64 98 Room Air* 0 21 10/01/24 16:40 72 18 118/66 98 Room Air* 0 21 10/01/24 16:03 97.9 70 18 115/76 98 Room Air 0 1758/attempted fluid challenge and patient unable to tolerate and promptly threw up liquids. We will follow up with glucagon and recheck tolerance in the next 30-40 minutes. 1930/attempted fluid challenge after glucagon1 mg IV push. Patient unable to tolerate in immediately vomits. We will follow to admit patient to the hospital, we will consult Gastroenterology, we will obtain CT with contrast. 1944/spoke with Dr. Matt munguia/Gastroenterology and gave him my clinical findings to include working on CT scan to rule out the impaction he agreed to it accept patient in consultation 1949/spoke with valdez CORREA hospitalist and reviewed clinical findings and interventions for probable food bolus impaction and my consult with Gastroenterology he agreed to admit patient. HEART Score Response (Comments) Value History: Low suspicion (0) 0 EKG: Normal 0 Age: > 65yrs (+2) 2 Risk Factors: 1-2 risk factors (+1) 1 Initial Troponin: Normal limit (0) 0 Total 3 Medical Decision Making MDM MDM: Differential diagnosis: Acute nausea vomiting/food bolus impactions/electrolyte imbalance/dehydration Rationale: Tests considered and ordered secondary to shared decision making include: labs, ECG and radiology Previous outside records reviewed: Old ER visits. Reviewed Risk of complication and/or morbidity or mortality of patient management: Sever e Medications-Per medication reconciliation Need for hospitalization: Patient does meet criteria for hospitalization. Patient will need GI consultation and disimpaction Need for emergency major/minor surgery: Probable endoscopy by drawing kiln operator There are no social concerns with this patient. Prescription drug management Prescriptions will include symptomatic care Patient's prior external medical records from other ER visits were reviewed by me as indicated. Prior testing and results from previous visits were reviewed. Prior tests were taken into account with medical decision making and resource utilization, independent historian/historians were used to obtain complete medical history. I independently interpreted the test that were performed, results were reviewed by me and considered findings on radiology if ordered. Medical management and examination interpretation discussions were had by me with other qualified healthcare professionals as indicated for the patient's care. DX & DISP Disposition: Inpatient Decision to Admit Time: 19:49 Departure Impression: Primary Impression: Esophageal obstruction due to food impaction Condition: Stable Referrals: KIKI PALACIOS MD (PCP) Time of Disposition: 19:49 I have reviewed the case, and I agree with, Diagnosis and Plan JED BRIAN NP Oct 01, 2024 16:10
[2024-10-01 16:46] LABS: BASOPHILS # (AUTO) 0.06 K/uL (0.00-0.20); BASOPHILS % (AUTO) 0.7 % (0.0-5.0); EOSINOPHILS # (AUTO) 0.07 K/uL (0.00-0.70); EOSINOPHILS % (AUTO) 0.8 % (0.0-8.0); HEMATOCRIT 41.1 % (42-54); IMMATURE GRANULOCYTE ABSOLUTE 0.05 K/uL (0-1); LYMPHOCYTES # (AUTO) 1.6 K/uL (1.0-4.8); LYMPHOCYTES % (AUTO) 17.6 % (21.0-51.0); MEAN CORPUSCULAR HEMOGLOBIN 30.6 pg (27.0-33.0); MEAN CORPUSCULAR HGB CONC 33.6 g/dL (32.0-36.0); MEAN CORPUSCULAR VOLUME 91.1 fL (79-99); MONOCYTES # (AUTO) 0.5 K/uL (0.1-1.0); MONOCYTES % (AUTO) 5.8 % (3.0-13.0); NEUTROPHILS # (AUTO) 6.8 K/uL (1.8-7.7); NEUTROPHILS % (AUTO) 74.6 % (40.0-77.0); PLATELET COUNT (AUTO) 315 K/uL (130-400); RED BLOOD CELL COUNT(AUTO) 4.51 MIL/uL (4.50-6.20); RED CELL DISTRIBUTION WIDTH 13.1 % (11.0-15.5); WHITE BLOOD COUNT (AUTO) 9.1 K/uL (4.8-10.8)
--- NOTE | 2024-10-01 16:47 | EKG ---
[facility] Test Date: 2024-10-01 Test Time: 16:24:32 Pat Name: ADITHYA MINAYA Department: ED Room: 418 Gender: M Hospice Community Liaison: [id number] : 1940 Requested By: JED BRIAN Order Number: [id number] Reading MD: Mauricio Scott Measurements Intervals [place] Rate: 72 P: 11 NE: 157 QRS: -11 QRSD: 85 T: 0 QT: 395 QTc: 432 Interpretive Statements Sinus rhythm Compared to ECG 11/09/2023 10:33:50 Atrial premature complex(es) no longer present Electronically Signed On 10-02-2024 18:55:18 EMPLOYEE SERVICES MANAGER by Mauricio Scott Please click the below link to view image of tracing.
[2024-10-01 16:55] LABS: CREATININE 1.3 mg/dL (0.5-1.3)
--- NOTE | 2024-10-01 17:00 | NUR ---
FLUID CHALLANGE 1 PT COULD NOT SWALLOW THE WATER.HE STARTED VOMITING.WHITE WASHER PILER MADE AWARE.
[2024-10-01] MEDS: ondanSETRON 4MG INJ IVP ONE (17:08)
[2024-10-01] MEDS: FAMOTIDINE 20MG VIAL IV ONE (17:08)
[2024-10-01] MEDS: 0.9%NACL 1000ML 1,000 ML IV ONE (17:08)
[2024-10-01] MEDS: GLUCAGON 1MG KIT 1 MG ML IV SCH (19:04)
[2024-10-01] MEDS ORDERED: IOHEXOL-350 75 ML VIAL IV ONE (19:39)
[2024-10-01] MEDS ORDERED: morPHINE 4 MG SYG IVP PRN (20:00)
[2024-10-01] MEDS ORDERED: ondanSETRON 4MG INJ IVP PRN (20:00)
[2024-10-01] MEDS ORDERED: LAbetaLOL 20MG SYG IV PRN (20:00)
[2024-10-01] MEDS ORDERED: hydrALAZine 20MG/ML VIAL IV PRN (20:00)
--- NOTE | 2024-10-01 20:01 | HP ---
[facility] HISTORY & PHYSICAL Date Patient Seen: Oct 01, 2024 Time of Visit: 20:00 Supervising Physician: Dr Romulo Ellsworth Primary Care Physician: Dr. Shaver Outpatient Specialists: [ ] Inpatient Consults: GI PROBLEM LIST: Dysphagia, POA Esophageal bolus food impaction, POA Hypertension, POA Hyperlipidemia, POA History of BPH Plan: Admit to medical-surgical floor VS per unit protocol NPO now GI consulted For possible EGD in a.m. Keep head of bed above 30 Keep SBP less than 160 P.r.n. hydralazine and labetalol Bilateral SCDs Facilitate ordered imaging Facilitate ordered labs CBC, CMP, magnesium level daily Aspiration precaution Speech eval and treat HPI: 84-year-old male with past medical history of hypertension, hyperlipidemia, BPH who presented to ED via private vehicle with complaint of difficulty swallowing with associated nausea and vomiting and found to have possible esophageal bolus impaction. Per report his problem started since last night, unable to take any food or water since yesterday, so he decided to come to ED for further medical evaluation. In ED patient underwent dysphagia screen and was given glucagon without significant improvement in his swallowing. CT of the abdomen was done currently pending at this time. GI consulted and plan to do EGD in the morning. Patient was seen and examined in ED with no relatives present at bedside. At present patient is currently hemodynamically stable, denies any headache, chest pain, fever, cough, abdominal pain, diarrhea, flu-like symptoms, or difficulty urinating. Patient denies any smoking, alcohol intake, illicit drug use. Patient is vaccinated against COVID virusand his flu shot is up-to-date. PAST MEDICAL HX: see above PAST SURGICAL HX: noncontributory SOCIAL HISTORY: No tobacco, ETOH, or illicit drug use Coded Allergies: No Known Drug Allergies (Unverified Allergy, 01/11/13) REVIEW OF SYSTEMS: 12 point ROS reviewed with patient. Pertinent positives mentioned above. Otherwise negative. PHYSICAL EXAM: GENERAL: alert, weak, awake oriented x 3 HEENT: EOMI, Sclera non icteric, moist mucosa NECK: Supple, no JVD, trachea midline LUNGS: Clear breath sounds bilaterally. No wheezes HEART: Regular rate and rhythm. Normal S1 and S2, without murmurs ABD: Abdomen soft, nontender. Bowel sounds present EXT: No clubbing cyanosis or edema NEURO: Alert and oriented to person, follows commands Vital Signs (last 8hr) Date Time Temp Pulse Resp B/P (MAP) Pulse Ox O2 Delivery O2 Flow Rate FiO2 10/01/24 19:28 97.9 74 20 124/71 98 Room Air* 0 10/01/24 18:35 98.1 60 18 121/64 98 Room Air* 0 10/01/24 16:40 72 18 118/66 98 Room Air* 0 10/01/24 16:03 97.9 70 18 115/76 98 Room Air 0 LABS: Hematology Labs: Test 10/01/24 16:30 Range/Units White Blood Count 9.1 4.8-10.8 K/uL Red Blood Count 4.51 4.50-6.20 MIL/uL Hemoglobin 13.8 L 14.0-18.0 g/dL Hematocrit 41.1 L 42-54 % Mean Corpuscular Volume 91.1 79-99 fL Mean Corpuscular Hemoglobin 30.6 27.0-33.0 pg Mean Corpuscular Hemoglobin Concent 33.6 32.0-36.0 g/dL Red Cell Distribution Width 13.1 11.0-15.5 % Platelet Count 315 130-400 K/uL Mean Platelet Volume 9.8 7.5-10.5 fL Immature Granulocyte % (Auto) 0.5 0-1 % Neutrophils (%) (Auto) 74.6 40.0-77.0 % Lymphocytes (%) (Auto) 17.6 L 21.0-51.0 % Monocytes (%) (Auto) 5.8 3.0-13.0 % Eosinophils (%) (Auto) 0.8 0.0-8.0 % Basophils (%) (Auto) 0.7 0.0-5.0 % Neutrophils # (Auto) 6.8 1.8-7.7 K/uL Lymphocytes # (Auto) 1.6 1.0-4.8 K/uL Monocytes # (Auto) 0.5 0.1-1.0 K/uL Eosinophils # (Auto) 0.07 0.00-0.70 K/uL Basophils # (Auto) 0.06 0.00-0.20 K/uL Absolute Immature Granulocyte (auto 0.05 0-1 K/uL Nucleated Red Blood Cells 0.0 0.0-0.19 % Chemistry Labs: Test 10/01/24 16:30 Range/Units Sodium Level 144 136-145 mmol/L Potassium Level 4.0 3.5-5.1 mmol/L Chloride Level 106 101-111 mmol/L Carbon Dioxide Level 28 21-32 mmol/L Blood Urea Nitrogen 19 H 7-18 mg/dL Creatinine 1.3 0.5-1.3 mg/dL Glomerular Filtration Rate Calc 54 >90 mL/min Random Glucose 102 70-105 mg/dL Total Calcium 9.0 8.5-10.1 mg/dL Troponin I High Sensitivity 12 4-75 ng/L Lipase 36 16-77 U/L DIAGNOSTICS / RADIOLOGY RESULTS: [ ] PLAN NEURO: Minimize central acting medications as possible. Maintain fall precautions, adequate lighting during the day PULMONARY: Supplemental 02 as needed. Maintain aspiration precautions at all times CARDIOVASCULAR: Follow hemodynamics. Vital signs per facility protocol GI & NUTRITION: NPO Continue with nutritional support. Continue stool softeners and laxatives as needed. KIDNEYS & ELECTROLYTES: Strict monitoring of intake, output and overall fluid balance. Avoid nephrotoxic medications to the extent possible. Medications to be dosed according to renal function. Monitor electrolytes and replace as needed ENDOCRINE: Maintain blood glucose between 100-180 at all times. Hypoglycemia protocol in place INFECTIOUS DISEASE: Trend temperature, WBC and procalcitonin level Follow cultures, deescalate antibiotics as soon as possible. Panculture if new onset fever ONCOLOGY/HEMATOLOGY/COAGULATION: Monitor for s/s of bleeding Monitor hemoglobin, coagulation studies as needed SKIN: Pressure ulcer prevention per facility protocol Specialty mattress ORTHO/REHAB: Continue PT/OT Prophylaxis: Continue GI and DVT prophylaxis Code Status: Full Resuscitation Disposition: TBD Other: Total patient care time exceeds 35 minutes excluding all procedures. Supervising physician: MARILYN Arvizu APRN Oct 01, 2024 20:01
--- NOTE | 2024-10-01 20:18 | HMCIMG ---
CT ABDOMEN WITH CONTRAST. CT PELVIS WITH CONTRAST INDICATION: Unable to pass fluid or fluid TECHNIQUE: Routine transaxial images using 5 mm slice thickness were obtained after the intravenous infusion of 100 mL of Omnipaque 350 without adverse effects. Oral contrast was not administered. Rectal contrast was not administered. Coronal and sagittal reformatted images acquired for interpretation. CT was performed with one or more of the following dose reduction techniques: Automated exposure control, adjustment of the mA and/or kV according to patient size, or use of iterative reconstruction technique. COMPARISON: None FINDINGS: ABDOMEN: Heart size is normal. Visible lung bases are clear. Fluid within the distal esophagus without dilation. Tiny hiatal hernia, but no CT evidence for obstructing mass. The liver is normal in size and smooth in contour without lesions or biliary duct dilation. The spleen is normal in size without lesions. The gallbladder is absent. The pancreas appears normal without pancreatic duct dilation. The adrenal glands appear normal. Both kidneys appear unremarkable. Cortical nephrograms are symmetric and normal in appearance bilaterally. No evidence for intra-abdominal free air or organized fluid collection. No retrocrural, intraabdominal, or retroperitoneal lymphadenopathy identified. Mild calcific plaque is noted along the abdominal aortic and iliac vessel bauman without aneurysmal dilation or dissection. PELVIS: No evidence for free air or organized pelvic fluid collection. No significant pelvic adenopathy detected. Single diverticulum along the descending colon. 1.5 cm diverticulum arising medially of the first segment of the duodenum. Terminal ileum appears normal. The appendix is not visualized. The urinary bladder appears unremarkable. Mild thoracolumbar spondylosis. Extremely shallow lower lumbar levoscoliosis. IMPRESSION: Fluid within the distal esophagus without dilation. Tiny hiatal hernia, but no CT evidence for obstructing mass. Endoscopy may be necessary for further evaluation. Additional minor findings and pertinent negatives as reported.
--- NOTE | 2024-10-01 20:54 | HMCIMG ---
PORTABLE CHEST RADIOGRAPH INDICATION: sob COMPARISON: 11/09/2023 FINDINGS: Heart size is normal. The pulmonary vascularity and danial appear normal. No abnormal pulmonary parenchymal opacity or consolidation identified. Linear scarring left lung base. No significant pleural effusion noted. No pneumothorax detected. IMPRESSION: No radiographic evidence for any acute cardiopulmonary process.
[2024-10-01 22:55] VITALS: BP 145/62; PULSE 75; RESP 19; TEMP 97.8
[2024-10-01 23:00] VITALS: O2SAT 97
--- NOTE | 2024-10-01 23:00 | NUR ---
arrival report received from baltazar osorio. patient arrived to room 418. he is alert and oriented times 4. he is ambulatory independently. home medications entered. plan of care discussed with him and he verbalized understanding. he is npo after midnight for an EGD today. I let warehouse specialist, modesto melo, know and she is aware. The patient has slept for the rest of the night. He has no pain. call light within reach, scd's on, bed alarm on, 2 side rails up, will continue to monitor patient.
[2024-10-01] MEDS ORDERED: CHOL100046 PO (23:24)
[2024-10-01] MEDS ORDERED: ACET-2743 PO (23:24)
[2024-10-01] MEDS ORDERED: ASCO500C19 PO (23:24)
[2024-10-01] MEDS ORDERED: MAG-156 PO (23:24)
[2024-10-01] MEDS ORDERED: ATOR40TA71 PO (23:24)
[2024-10-01] MEDS ORDERED: SERT-439 PO (23:24)
[2024-10-01] MEDS ORDERED: TAMS-55 PO (23:24)
[2024-10-02] VITALS (21 sets, daily range): BP systolic 127–154; BP diastolic 63–84; PULSE 60–74; RESP 15–18; TEMP 97.7–98.1; O2SAT 97
[2024-10-02 04:58] LABS: BASOPHILS # (AUTO) 0.05 K/uL (0.00-0.20); BASOPHILS % (AUTO) 0.6 % (0.0-5.0); EOSINOPHILS % (AUTO) 1.1 % (0.0-8.0); HEMATOCRIT 38.5 % (42-54); IMMATURE GRANULOCYTE ABSOLUTE 0.03 K/uL (0-1); LYMPHOCYTES # (AUTO) 1.9 K/uL (1.0-4.8); LYMPHOCYTES % (AUTO) 20.9 % (21.0-51.0); MEAN CORPUSCULAR HEMOGLOBIN 30.9 pg (27.0-33.0); MEAN CORPUSCULAR HGB CONC 33.8 g/dL (32.0-36.0); MEAN CORPUSCULAR VOLUME 91.4 fL (79-99); MONOCYTES # (AUTO) 0.7 K/uL (0.1-1.0); MONOCYTES % (AUTO) 8.1 % (3.0-13.0); NEUTROPHILS # (AUTO) 6.1 K/uL (1.8-7.7); PLATELET COUNT (AUTO) 279 K/uL (130-400); RED BLOOD CELL COUNT(AUTO) 4.21 MIL/uL (4.50-6.20); RED CELL DISTRIBUTION WIDTH 13.2 % (11.0-15.5); WHITE BLOOD COUNT (AUTO) 8.9 K/uL (4.8-10.8)
[2024-10-02 05:19] LABS: CREATININE 1.1 mg/dL (0.5-1.3); MAGNESIUM 2.2 mg/dL (1.80-2.40); PHOSPHORUS 3.3 mg/dL (2.5-4.9); POTASSIUM 4.1 mmol/L (3.5-5.1)
--- NOTE | 2024-10-02 07:14 | NUR ---
EGD lead cytogenetic technologist is here for the patient to take him for his EGD. no issues.
[2024-10-02] MEDS ORDERED: SUCCINYLCHOLINE CHLORIDE 20 MG/ML 10 ML VIAL ONE (07:39)
[2024-10-02] MEDS ORDERED: GLYCOPYRROLATE 0.2 MG/ML 5 ML VIAL ONE (07:39)
[2024-10-02] MEDS ORDERED: rocuRONium bROMide 10MG/1ML 5ML VL ONE (07:39)
[2024-10-02] MEDS ORDERED: NEOSTIGMINE METHYLSULFATE 1MG/ML IV ONE (07:40)
[2024-10-02] MEDS ORDERED: proPOFol 10 MG/ML 20ML VIAL IV ONE (07:40)
[2024-10-02] MEDS ORDERED: LIDOCAINE HCL 1% 20 ML VIAL ONE (07:41)
[2024-10-02] MEDS ORDERED: ondanSETRON 4MG INJ ONE (07:41)
[2024-10-02] MEDS ORDERED: FENTanyl CITRate PF 50 MCG/1 ML 2ML VIAL ONE (07:41)
--- NOTE | 2024-10-02 12:35 | HMCIMG ---
ABD 1VW HISTORY: Distention COMPARISON: None FINDINGS: A frontal projection of the abdomen was obtained. A nonspecific bowel gas pattern is seen. Fecal material is seen in the colon. Degenerative changes of the thoracolumbar spine are noted. Contrast is seen in the bladder. IMPRESSION: 1. A nonspecific bowel gas pattern is seen.
--- NOTE | 2024-10-02 16:18 | DS ---
[facility] DISCHARGE SUMMARY Date Patient Seen: Oct 02, 2024 Time of Visit: 16:16 Supervising Physician: Dr. Ronald Celestin Primary Care Physician: Dr. Shaver Outpatient Specialists: [ ] Inpatient Consults: GI HOSPITAL COURSE: HPI (per admitting provider) 84-year-old male with past medical history of hypertension, hyperlipidemia, BPH who presented to ED via private vehicle with complaint of difficulty swallowing with associated nausea and vomiting and found to have possible esophageal bolus impaction. Per report his problem started since last night, unable to take any food or water since yesterday, so he decided to come to ED for further medical evaluation. In ED patient underwent dysphagia screen and was given glucagon without significant improvement in his swallowing. CT of the abdomen was done currently pending at this time. GI consulted and plan to do EGD in the morning. Patient was seen and examined in ED with no relatives present at bedside. At present patient is currently hemodynamically stable, denies any headache, chest pain, fever, cough, abdominal pain, diarrhea, flu-like symptoms, or difficulty urinating. Patient denies any smoking, alcohol intake, illicit drug use. Patient is vaccinated against COVID virusand his flu shot is up-to-date. 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 PCP notified of patients admission, hospital course and discharge. PHYSICAL EXAM: GENERAL: alert, weak, awake oriented x 3 HEENT: EOMI, Sclera non icteric, moist mucosa NECK: Supple, no JVD, trachea midline LUNGS: Clear breath sounds bilaterally. No wheezes HEART: Regular rate and rhythm. Normal S1 and S2, without murmurs ABD: Abdomen soft, nontender. Bowel sounds present EXT: No clubbing cyanosis or edema NEURO: Alert and oriented to person, follows commands FOLLOW-UP: Follow-up with PCP in 2-3 days RECOMMENDATIONS: See Discharge Instructions This case was seen and discussed with my supervising physician. More than 30 minutes spent on discharge process, including evaluation of the patient, discussion with nursing staff, medication reconciliation and follow-up appointments JONH TAPIA Oct 02, 2024 16:18
--- NOTE | 2024-10-02 18:35 | NUR ---
DCP Patient hard of hearing. Patient states lives alone in a house where enterance has two steps and with a shower. States he is retired, remains independent and drives. States able to complete ADL's on his own. Denies medical devices. Denies and rejects home health services, home care provider or dialysis. PCP - Mauricio Shaver MD Pharmacy - [facility]. Upon discharge, Charleen Colon, Daughter [phone]/Maria Cuba, Daughter [phone] and family will assist with care, if needed. Addendum: 10/02/24 at 1839 by JAZMIN ENAMORADO RN CM Amended: Links added.
== END 2024-10-02 17:45 | disposition home or self-care (01) ==
LOC: EDH 16:01 → UNDOADMOB 16:02 → EDHIP 16:02 → INTOOBSV 19:50 → UNDOADMOB 19:50 → EDHIP 22:44 → 4CH 22:44
PROVIDERS: ADMIT Internal Medicine; ATTEND Internal Medicine
DX: T18.128A Food in esophagus causing other injury, initial encounter (principal); R10.30 Lower abdominal pain, unspecified; I10 Essential (primary) hypertension; R11.2 Nausea with vomiting, unspecified; K46.9 Unspecified abdominal hernia without obstruction or gangrene; F32.A Depression, unspecified; N40.0 Benign prostatic hyperplasia without lower urinary tract symptoms; E78.00 Pure hypercholesterolemia, unspecified; W44.F3XA Food entering into or through a natural orifice, initial encounter; Y93.89 Activity, other specified; Y92.89 Other specified places as the place of occurrence of the external cause; Y99.8 Other external cause status; Z79.899 Other long term (current) drug therapy; Z98.890 Other specified postprocedural states
CPT/HCPCS: 96374; 96361; 96375; 99285; 84484; 80048 ×2; 83690; 85025 ×2; 36415 ×2; 71045; 74177; 93005; 43247; 83735; 84100; 82948; 88305; 88312; 74018; 43239; G0378 ×21; J3490 ×2; J7030 ×2; J1610; J2405 ×2; Q9967; J3010; A4215; A4223; A4657 ×2; A7002; A4222; A4606; J0330; J2704; J2710